=== PATIENT | female | born 1995 | race Two or more races ===

== ENCOUNTER 2020-10-27 03:19 | Emergency (ER) | payer BC, OTHER ==
[~2020-10-27] VITALS: Ht 170.2 cm; Wt 104.3 kg
[2020-10-27] MEDS ORDERED: BENZOCAINE (DENTAL) 20 % SPRAY 60ML MT ONE (06:00)
[2020-10-27 06:51] VITALS: BP 130/73
== END 2020-10-27 06:54 | disposition home or self-care (01) ==
LOC: ER 03:19
DX: K08.89 Other specified disorders of teeth and supporting structures (principal)
CPT/HCPCS: 81025

== ENCOUNTER 2022-07-08 08:53 | Emergency (ER) | payer BC, OTHER ==
[~2022-07-08] VITALS: Ht 170.2 cm; Wt 78.0 kg
[2022-07-08 09:23] LABS: Basophils # (auto) 0.1 10 ^3/uL (0-0.2); Basophils % (auto) 0.6 % (0.0-2.0); Eosinophils # (auto) 0.1 10 ^3/uL (0-0.8); Eosinophils % (auto) 0.7 % (0.0-7.0); Hematocrit 36.5 % (36.0-46.0); Hemoglobin 12.1 g/dL (12.2-16.2); Lymphocytes # (auto) 3.6 10 ^3/uL (0.4-5.4); Lymphocytes % (auto) 36.4 % (10.0-50.0); Mean Corpuscular Hemoglobin 28.6 pg (28.0-32.0); Mean Corpuscular Hgb Conc. 33.1 g/dL (32.0-36.0); Mean Corpuscular Volume 86.3 fL (80.0-100.0); Monocytes # (auto) 0.6 10 ^3/uL (0-1.3); Monocytes % (auto) 6.1 % (0.0-12.0); Neutrophils # (auto) 5.5 10 ^3/uL (1.6-8.6); Neutrophils % (auto) 56.2 % (37.0-80.0); Red Blood Cells 4.23 10^6/uL (4.0-5.20); Red Cell Distribution Width 13.9 % (11.8-14.3); White Blood Cell 9.8 10^3/uL (4.4-10.8)
[2022-07-08 09:39] LABS: Potassium 3.5 mmol/L (3.5-5.1)
[2022-07-08 09:43] LABS: BUN/Creatinine Ratio 14.5; Bilirubin, Total 0.6 mg/dL (0.2-1.0); Total Protein 7.8 g/dL (6.4-8.2)
[2022-07-08 09:46] VITALS: BP 108/69
[2022-07-08 10:28] LABS: Magnesium 2.3 mg/dL (1.6-2.6); Phosphorus 2.7 mg/dL (2.5-4.90)
[2022-07-08] MEDS ORDERED: ACET1CAP14 PO (11:46)
== END 2022-07-08 11:56 | disposition home or self-care (01) ==
LOC: ER 08:53
DX: R07.89 Other chest pain (principal); Z79.899 Other long term (current) drug therapy
CPT/HCPCS: 36415; 71045; 80053; 83735; 84100; 84484; 85025; 85379; 93005

== ENCOUNTER 2024-11-24 19:12 | Emergency (ER) | payer MEDICAID, BC ==
[~2024-11-24] VITALS: Ht 170.2 cm; Wt 81.8 kg
[~2024-11-24 19:12] MED LIST: ACET1CAP14 PO
[2024-11-24 19:23] VITALS: BP 130/84; PULSE 110; RESP 18; TEMP 99; O2SAT 100
--- NOTE | 2024-11-24 19:26 | ED.PDOC ---
History of Present Illness HPI Comments 29 year old female presents to the ED for the c/c of 710 Right sided Flank pain. Pt states that her pain started yesterday, and notes of an alleviating factor of Heat packs at this time. Pt was noted to have a 119 HR upon triage assessment. No other symptoms or modifying factors reported at this time. Marilyne nt is alert and oriented x4 and has a stable gait. Time Seen by MD: 19:23 Primary Care Provider: UNKNOWN Reviewed Notes: Nurses Notes, Medications, Allergies Allergies: Coded Allergies: NO KNOWN ALLERGIES (Unverified , 10/27/20) Home Meds Active Scripts Acetaminophen (Tylenol) 325 Mg Cap, 325 MG PO Q4HPRN PRN, #30 CAP 0 Refills Take 1-2 caps po q4h prn for pain Prov:ANNIE LEWIS 07/08/22 Information Source: Patient Mode of Arrival: Ambulatory Severity: Mild Timing: Hours Duration: Since onset, Hours Prehospital treatment: None Past Medical History PAST MEDICAL HISTORY: Denies Surgical History: Denies all surgeries STREAM CONTROL OFFICER History: No Pertinent STREAM CONTROL OFFICER History Family History Family History: Unknown Social History Smoker: Non-Smoker Alcohol: Denies ETOH Use Drugs: Denies Drug Use Lives In: Home Constitutional: denies: chills, diaphoresis, fatigue, fever, malaise, sweats, weakness, others EENTM: denies: blurred vision, double vision, ear bleeding, ear discharge, ear drainage, ear pain, ear ringing, eye pain, eye redness, hearing loss, mouth pain, mouth swelling, nasal discharge, nose bleeding, nose congestion, nose pain, photophobia, tearing, throat pain, throat swelling, voice changes, others Respiratory: denies: cough, hemoptysis, orthopnea, SOB at rest, shortness of breath, SOB with excertion, stridor, wheezing, others Cardiovascular: denies: chest pain, dizzy spells, diaphoresis, Dyspnea on exertion, edema, irregular heart beat, left arm pain, lightheadedness, palpitat ions, PND, syncope, others Gastrointestinal: denies: abdomen distended, abdominal pain, blood streaked bow els, constipated, diarrhea, dysphagia, difficulty swallowing, hematemesis, melena, nausea, poor appetite, poor fluid intake, rectal bleeding, rectal pain, vomiting, others Genitourinary: reports: flank pain; denies: abnormal vagina bleeding, burning, dyspareunia, dysuria, frequency, hematuria, incontinence, pain, , vagina discharge, urgency, others Neurological: denies: dizziness, fainting, headache, left sided numbness, left sided weakness, numbness, paresthesia, pre-existing deficit, right sided numbness, right sided weakness, seizure, speech problems, tingling, tremors, weakness, others Musculoskeletal: reports: back pain; denies: gout, joint pain, joint swelling, muscle pain, muscle stiffness, neck pain, others Integumetry: denies: bruises, change in color, change in hair/nails, dryness, laceration, lesions, lumps, rash, wounds, others Allergic/Immunocompromised: denies: Difficulty Healing, Frequent Infections, Hives, Itching, others Hematologic/Lymphatic: denies: anemia, blood clots, easy bleeding, easy bruising, swollen glands, others Endocrine: denies: excessive hunger, excessive sweating, excessive thirst, excessive urination, flushing, intolerance to cold, intolerance to heat, unexplained weight gain, unexplained weight loss, others Psychiatric: denies: anxiety, bipolar disorder, depression, hopeless, panic disorder, schizophrenia, sleepless, suicidal, others All Other Systems: Reviewed and Negative Physical Exam General Appearance: No Apparent Distress, Normal HEENT: Normal ENT Inspection, Pharynx Normal, TMs Normal Neck: Full Range of Motion, Non-Tender, Normal, Normal Inspection Respiratory: Chest Non-Tender, Lungs Clear, No Accessory Muscle Use, No Respiratory Distress, Normal Breath Sounds Cardiovascular: No Edema, No JVD, No Murmur, No Gallop, Normal Peripheral Pulses, Regular Rate/Rhythm Breast Exam: Deferred Gastrointestinal: No Organomegaly, Non Tender, No Pulsatile Mass, Normal Bowel Sounds, Soft Genitalia: Deferred Pelvic: Deferred Rectal: Deferred Extremities: No calf tenderness, Normal capillary refill, Normal inspection, Normal range of motion, Non-tender, No pedal edema Musculoskeletal : Location: Right Extremity Location: Back (Right flank pain and tenderness, no CVA tenderness, no gross abnormaility, no mildline tenderness) Apperance: Normal Neurologic: Alert, No Motor Deficits, Normal Affect, Normal Mood, No Sensory Deficits Cerebellar Function: Normal Reflexes: Normal Skin: Dry, Normal Color, Warm Lymphatic: No Adenopathy Was a procedure done? Was a procedure done?: No Differential Dx Considerations may include: Urinary tract infection, pyelonephritis, kidney stone X-Ray, Labs, Meds, VS Vital Signs Date Time Temp Pulse Resp B/P (MAP) Pulse Ox O2 Delivery O2 Flow Rate FiO2 11/24/24 19:23 99.0 110 18 130/84 (99) 100 99.0 Lab Test 11/24/24 19:46 11/24/24 19:25 Range/Units White Blood Count 6.7 4.4-10.8 10^3/uL Red Blood Count 4.12 4.0-5.20 10^6/uL Hemoglobin 9.6 L 12.2-16.2 g/dL Hematocrit 30.4 L 36.0-46.0 % Mean Corpuscular Volume 73.9 L 80.0-100.0 fL Mean Corpuscular Hemoglobin 23.4 L 28.0-32.0 pg Mean Corpuscular Hemoglobin Concent 31.7 L 32.0-36.0 g/dL Red Cell Distribution Width 17.8 H 11.8-14.3 % Platelet Count 305 140-450 10^3/uL Mean Platelet Volume 9.3 6.9-10.8 fL Neutrophils (%) (Auto) 56.4 37.0-80.0 % Lymphocytes (%) (Auto) 32.1 10.0-50.0 % Monocytes (%) (Auto) 9.9 0.0-12.0 % Eosinophils (%) (Auto) 1.0 0.0-7.0 % Basophils (%) (Auto) 0.6 0.0-2.0 % Neutrophils # (Auto) 3.8 1.6-8.6 10 ^3/uL Lymphocytes # (Auto) 2.1 0.4-5.4 10 ^3/uL Monocytes # (Auto) 0.7 0-1.3 10 ^3/uL Eosinophils # (Auto) 0.1 0-0.8 10 ^3/uL Basophils # (Auto) 0 0-0.2 10 ^3/uL Nucleated Red Blood Cells 0.1 % Sodium Level 140 136-145 mmol/L Potassium Level 4.1 3.5-5.1 mmol/L Chloride Level 105 98-107 mmol/L Carbon Dioxide Level 26 20-31 mmol/L Anion Gap 9 5-15 Blood Urea Nitrogen 11 9-23 mg/dL Creatinine 0.89 0.550-1.02 mg/dL Glomerular Filtration Rate Calc 91 >90 mL/min BUN/Creatinine Ratio 12.4 10.0-20.0 Serum Glucose 91 74-106 mg/dL Calcium Level 10.0 8.7-10.4 mg/dL Urine Color Colorless Yellow Urine Clarity Clear Clear Urine pH 5.5 5.0-9.0 Urine Specific Harmony 1.006 1.001-1.035 Urine Protein Negative Negative Urine Ketones Negative Negative Urine Blood Negative Negative /uL Urine Nitrite Negative Negative Urine Bilirubin Negative Negative Urine Urobilinogen Normal Negative mg/dL Urine Leukocyte Esterase Negative Negative /uL Urine RBC None seen 0 - 4 /hpf Urine Microscopic WBC < 1 0-5 /HPF Urine Squamous Epithelial Cells Few <5 /hpf Urine Bacteria None seen None Seen /hpf Urine Glucose Normal Normal mg/dL PATIENT: ALVERTO LAGUNAS ACCT: [id number] UNIT: [id number] : 1995 LOC: ER ROOM / BED: / AGE / SEX: 29 / F ADM STATUS: REG ER SERVICE 24 ORDERING PHYSICIAN: SELVIN LIMA PROCEDURE(s): ABPL - CT AB PEL WO CON-NO ORAL OR IV REASON: flank pain ORDER NUMBER(s): [id number], ACCESSION NUMBER(s): [id number] Exam: CT CT AB PEL WO CON-NO ORAL OR IV History: flank pain Comparison Study: None TECHNIQUE: Multidetector CT of the abdomen and pelvis without IV contrast. Axial, coronal and sagittal multiplanar reformats were obtained from the axial data set by the technologist. Radiation Dose Information: CT Dose: CTDI volume is 13.83 mGy. Dose-length product is 793.26 mGy*cm FINDINGS: The lung bases are clear. Partially visualized heart is unremarkable. Mild splenomegaly. Mild hepatomegaly. No focal splenic or hepatic lesions. Cholelithiasis without evidence for acute cholecystitis. Pancreas and adrenal glands unremarkable. Kidneys and ureters unremarkable. Mild wall thickening of the urinary bladder which is most likely from decompressed state. Uterus and adnexa are unremarkable. Postsurgical changes of the stomach. Mild wall thickening of the distal esophagus. Small bowel loops unremarkable. Appendix is unremarkable. Moderate to large amount of fecal material within the colon. Segmental decompression of the Distal transverse colon which may be for normal peristalsis. No evidence of intraperitoneal free air or free fluid. No evidence of aortic aneurysm. No significant lymphadenopathy. Soft tissues are unremarkable. Punctate hyperdensities over the supraumbilical region. No destructive osseous lesions noted. IMPRESSION: Mild wall thickening of the distal esophagus which may be due to inadequate distention/esophagitis. Moderate to large amount of fecal material within the colon. No hydro nephrosis or renal calculi bilaterally. No perinephric fat stranding to suggest infectious process. Mild wall thickening of the urinary bladder which is most likely due to inadequate distention. Correlation with urinalysis is recommended to exclude cystitis. X-Ray, Labs, Meds, VS Comment CT abdomen and pelvis: IMPRESSION: Mild wall thickening of the distal esophagus which may be due to inadequate distention/esophagitis. Moderate to large amount of fecal material within the colon. No hydro nephrosis or renal calculi bilaterally. No perinephric fat stranding to suggest infectious process. Mild wall thickening of the urinary bladder which is most likely due to inadequate distention. Correlation with urinalysis is recommended to exclude cystitis. Time of 1ST Reevaluation: 19:53 Reevaluation 1ST: Unchanged Patient Education/Counseling: Diagnosis, Treatment, Need For Follow Up Family Education/Counseling: No Family Present SEPSIS Sepsis Screen Physician Orders Ct Ab Pel Wo Con-No Oral Or Iv (11/24/24 19:25) Vital Signs Date Time Temp Pulse Resp B/P (MAP) Pulse Ox O2 Delivery O2 Flow Rate FiO2 11/24/24 19:23 99.0 110 18 130/84 (99) 100 99.0 Laboratory Tests Test 11/24/24 19:46 White Blood Count 6.7 10^3/uL (4.4-10.8) Departure 1 Departure Time of Disposition: 20:58 Impression: Primary Impression: Lower back pain Qualified Codes: M54.50 - Low back pain, unspecified Disposition: HOME / SELF CARE / HOMELESS Condition: Fair e-Prescriptions Cyclobenzaprine Hcl (Cyclobenzaprine Hcl) 5 Mg Tab 1 TAB PO QPM PRN, #30 TAB Prov: SELVIN LIMA 11/24/24 Discharged With: Self Critical Care Note Critical Care Time?: No Stability Stability form required: No Heart Score Heart Score: Heart Score Response (Comments) Value History N/A 0 EKG N/A 0 Age N/A 0 Risk Factors N/A 0 Troponin N/A 0 Total 0 I personally scribed for SELVIN LIMA [employer] ([email or web address]) on 11/24/24 at 19:26. Electronically submitted by Kevin Barajas ([email or web address]). I personally scribed for SELVIN LIMA [employer]PER[employer] ([email or web address]) on 11/24/24 at 20:29. Electronically submitted by Kevin Barajas ([email or web address]). SELVIN LIMA Nov 24, 2024 19:26
[2024-11-24 19:43] LABS: Urine Protein, UAD Negative (Negative)
[2024-11-24 20:09] LABS: Nucleated Red Blood Cells % 0.1 %
[2024-11-24 20:10] LABS: Hematocrit 30.4 % (36.0-46.0); Hemoglobin 9.6 g/dL (12.2-16.2); Mean Corpuscular Hemoglobin 23.4 pg (28.0-32.0); Mean Corpuscular Volume 73.9 fL (80.0-100.0)
[2024-11-24 20:19] LABS: Chloride 105 mmol/L (98-107); Potassium 4.1 mmol/L (3.5-5.1); Sodium 140 mmol/L (136-145)
[2024-11-24 20:20] LABS: Anion Gap 9 (5-15); Calcium 10.0 mg/dL (8.7-10.4); Carbon Dioxide 26 mmol/L (20-31)
--- NOTE | 2024-11-24 20:20 | DVH ---
Exam: CT CT AB PEL WO CON-NO ORAL OR IV History: flank pain Comparison Study: None TECHNIQUE: Multidetector CT of the abdomen and pelvis without IV contrast. Axial, coronal and sagitta l multiplanar reformats were obtained from the axial data set by the technologist. Radiation Dose Information: CT Dose: CTDI volume is 13.83 mGy. Dose-length product is 793.26 mGy*cm FINDINGS: The lung bases are clear. Partially visualized heart is unremarkable. Mild splenomegaly. Mild hepatomegaly. No focal splenic or hepatic lesions. Cholelithiasis without cortney dence for acute cholecystitis. Pancreas and adrenal glands unremarkable. Kidneys and ureters unremarkable. Mild wall thickening of the urinary bladder which is most likely fr om decompressed state. Uterus and adnexa are unremarkable. Postsurgical changes of the stomach. Mild wall thickening of the distal esophagus. Small bowel loops unremarkable. Appendix is unremarkable. Moderate to large amount of fecal material within the colon. Segmental decompression of the Distal transverse colon which may be for normal peristalsis. No evidence of intraperitoneal free air or free fluid. No evidence of aortic aneurysm. No significant lymphadenopathy. Soft tissues are unremarkable. Punctate hyperdensities over the supraumbilical region. No destructive osseous lesions noted. IMPRESSION: Mild wall thickening of the distal esophagus which may be due to inadequate distention/esophagitis. Moderate to large amount of fecal material within the colon. No hydro nephrosis or renal calculi bilaterally. No perinephric fat stranding to suggest infectious p rocess. Mild wall thickening of the urinary bladder which is most likely due to inadequate distention. Corre lation with urinalysis is recommended to exclude cystitis.
[2024-11-24 20:25] LABS: BUN/Creatinine Ratio 12.4 (10.0-20.0); Blood Urea Nitrogen 11 mg/dL (9-23); Glucose 91 mg/dL (74-106)
[2024-11-24] MEDS ORDERED: CYCL-837 PO (21:00)
== END 2024-11-24 22:56 | disposition home or self-care (01) ==
LOC: ER 19:12
DX: M54.50 Low back pain, unspecified (principal); R10.31 Right lower quadrant pain; Z79.899 Other long term (current) drug therapy
CPT/HCPCS: 36415; 74176; 80048; 81001; 85025

== ENCOUNTER 2025-04-26 08:05 | Outpatient (CLI) | payer BC, MEDICAID ==
[~2025-04-26 08:05] MED LIST changes: +CYCL-837 PO
[2025-04-26 08:27] LABS: Hematocrit 29.3 % (36.0-46.0); Hemoglobin 9.1 g/dL (12.2-16.2); Mean Corpuscular Hemoglobin 22.0 pg (28.0-32.0); Mean Corpuscular Volume 71.0 fL (80.0-100.0); Nucleated Red Blood Cells % 0.0 %
[2025-04-26 09:11] LABS: Alanine Aminotransferase 10 U/L (7-40); Alkaline Phosphatase 67 U/L (46-116); Anion Gap 10 (5-15); BUN/Creatinine Ratio 12.3 (10.0-20.0); Blood Urea Nitrogen 9 mg/dL (9-23); Calcium 9.0 mg/dL (8.7-10.4); Carbon Dioxide 25 mmol/L (20-31); Chloride 106 mmol/L (98-107); Glucose 88 mg/dL (74-106); Potassium 4.5 mmol/L (3.5-5.1); Sodium 141 mmol/L (136-145); Total Protein 7.6 g/dL (5.7-8.2); Triglycerides 100 mg/dL (< 150)
[2025-04-26 09:12] LABS: Albumin 4.4 g/dL (3.2-4.8); Bilirubin, Total 0.9 mg/dL (0.2-1.0); Cholesterol 151 mg/dL (< 200)
[2025-04-26 09:15] LABS: HDL Cholesterol 67 mg/dL (40-59)
[2025-04-26 11:05] LABS: Iron 31.0 ug/dL (50-170); Total Iron Binding Capacity 435.0 ug/dL (250-425)
== END 2025-04-26 17:00 | disposition home or self-care (01) ==
LOC: LAB 08:05
PROVIDERS: ATTEND Nurse Practitioner Family
DX: I10 Essential (primary) hypertension (principal); D50.0 Iron deficiency anemia secondary to blood loss (chronic); E66.9 Obesity, unspecified; Z00.01 Encounter for general adult medical examination with abnormal findings; Z98.84 Bariatric surgery status
CPT/HCPCS: 36415; 80053; 80061; 82607; 83540; 83550; 84443; 85025